=== PATIENT | female | born 1955 | race American Indian/Alaskan Native ===

== ENCOUNTER 2017-03-30 12:07 | Outpatient (CLI) | payer BC ==
--- NOTE | 2017-03-30 13:52 | XRay Report ---
Cervical spine 3 views: History: Cervical age. Findings: Normal height of vertebral bodies. Decrease in height of C3-C4, C4-C5, C6-C7 and C7-T1. Sclerotic adjacent articular surfaces with peripheral osteophytes suggestive of severe cervical spondylosis. No fracture. Normal prevertebral soft tissue. Impression: Severe cervical spondylosis.
--- NOTE | 2017-03-30 13:53 | XRay Report ---
Lumbar spine 3 views: History: Back pain. Findings: Normal height of vertebral intervertebral disc. Normal articular surfaces. No fracture. No paravertebral mass or calcification. Impression: No no bony or articular abnormality lumbar spine
== END 2017-03-30 12:08 | disposition home or self-care (01) ==
LOC: SPVIMAG 12:07
PROVIDERS: ATTEND Internal Medicine
DX: M47.892 Other spondylosis, cervical region (principal); M25.78 Osteophyte, vertebrae; M54.5 Low back pain
CPT/HCPCS: 72040; 72100

== ENCOUNTER 2017-04-09 14:45 | Outpatient (CLI) | payer BC ==
--- NOTE | 2017-04-10 12:30 | Magnetic Resonance Report ---
MRI CERVICAL SPINE WITHOUT CONTRAST: 04/09/17 15:07 CLINICAL: Neck pain. TECHNIQUE: Sagittal T1,T2 and STIR and axial gradient T2* sequences on a 1.5 Xochilt magnet. FINDINGS:Normal vertebral body height and alignment. Disc space narrowing and small osteophytes from C3-4 through C6-7. The overall marrow signal is normal. Uniform decreased T2 disc signal at all levels. The cerebellar tonsils are in normal position. The spinal cord is normal size with normal signal. C2-3: Intact. C3-4:A moderate size broad-based central disc-osteophyte producing effacement of the thecal sac and mild mass effect on the cord. The spinal canal measures 8.5 mm AP. No neural foraminal stenosis. C4-5: A moderate sized broad-based central disc-osteophyte producing partial effacement of the thecal sac and no mass effect on the cord. The spinal canal measures 9.4 mm AP. A large left uncal osteophyte and moderately severe left neural foraminal stenosis. C5-6:A moderate sized broad-based central disc-osteophyte producing partial effacement of the thecal sac and no mass effect on the cord. The spinal canal measures 8.5 mm AP. A left uncal osteophyte and moderately left neural foraminal stenosis C6-7:Moderate size broad-based central disc protrusion with minimal osteophyte producing effacement of the thecal sac and mild mass effect on the cord. The spinal canal measures 8.3 mm AP. Uncal osteophytes and moderate bilateral neural foraminal stenosis. C7-T1:Intact. IMPRESSION: Multilevel degenerative disc disease with disc-osteophytes and a central disc protrusion producing varying degrees of spinal canal stenosis. The greatest stenosis is at C6-7 and is produced by a central disc protrusion and minimal osteophyte. Mild cortical compression at C3-4 and C6-7. However, normal cord signal and no cord lesion.
== END 2017-04-09 14:46 | disposition home or self-care (01) ==
LOC: SPVIMAG 14:45
PROVIDERS: ATTEND Internal Medicine
DX: M48.02 Spinal stenosis, cervical region (principal); M50.30 Other cervical disc degeneration, unspecified cervical region; M53.82 Other specified dorsopathies, cervical region
CPT/HCPCS: 72141

== ENCOUNTER 2018-03-25 09:57 | Outpatient (CLI) | payer BC ==
[2018-03-25 10:41] LABS: Blood Urea Nitrogen 23 mg/dL (7-17)
--- NOTE | 2018-03-25 16:13 | Cat Scan Report ---
FINAL REPORT EXAM: CT ABDOMEN PELVIS W CON HISTORY: ABDOMINAL CRAMPS TECHNIQUE: Spiral CT scanning of the abdomen and pelvis after the uneventful administration of IV contrast. Multiplanar reformations. PRIORS: None. FINDINGS: Abdomen: Visualized lung bases grossly unremarkable. No radiopaque gallstones. Lobular, cystic focus interposed between gastric fundus, spleen, left kidney and pancreatic tail measuring approximately 2.6 x 3.6 cm, nonspecific. Liver without significant abnormality. Spleen without significant abnormality. Pancreas without significant abnormality. Kidneys without significant abnormality. Probable subcentimeter, left renal cyst. Adrenal glands without significant abnormality. Pelvis: Bowel grossly unremarkable. Appendix within normal limits. No significant free peritoneal fluid, discrete abscess or apparent adenopathy. Abdominal aorta non-aneurysmal. Osseous structures of axial skeleton grossly unremarkable. IMPRESSION: 1. Lobular, cystic focus in left upper quadrant may be related to gastric diverticulum versus nonspecific cyst adjacent to spleen, left kidney or pancreas. Exact etiology or significance uncertain, and clinical correlation along with followup may be warranted. 2. No other acute findings.
== END 2018-03-25 09:58 | disposition home or self-care (01) ==
LOC: CT 09:57
PROVIDERS: ATTEND Internal Medicine
DX: N28.1 Cyst of kidney, acquired (principal); K57.90 Diverticulosis of intestine, part unspecified, without perforation or abscess without bleeding
CPT/HCPCS: 36415; 74177; 82565; 84520; Q9967